=== PATIENT | male | born 1985 | race Caucasian/White ===

== ENCOUNTER 2016-07-04 14:39 | Emergency (ER) | payer SELFPAY ==
[2016-07-04] MEDS ORDERED: Ketorolac INJ* 60 MG/2 ML VIAL IM ONE (15:14)
--- NOTE | 2016-07-04 15:17 | ED ---
Back Pain - HPI Summary HPI Summary: 30 male presents with complaints of lower back pain that began 3 days ago that is accompanied by upper buttock numbness. He woke up with this pain. Patient denies bladder/bowel incontinence and saddle anesthesia. Denies numbness and tingling in lower extremities. Patient has not tried taking anything OTC for the pain. 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 He is also on his feet. He denies any PMHx. States he has chronic low back pain but has never had it this bad with the numbness of his upper buttocks/ lower back. Denies trauma, upper back, or neck pain. Denies difficulty breathing or chest pain. Pain does not radiate. Describes it as sharp that comes and goes. Worsens during walking, bearing weight and when bending over. - History of Current Complaint Chief Complaint: EDBackInjuryPain Stated Complaint: LOWER BACK PAIN Time Seen by Provider: 07/04/16 14:48 Hx Obtained From: Patient Onset/Duration: Sudden Onset Onset/Duration: Started Days Ago, Still Present Timing: Constant Back Pain Location: Is Discrete @ - L2-S1 Severity Initially: Mild Severity Currently: Moderate Pain Intensity: 6 Pain Scale Used: 0-10 Numeric Character: Sharp, Aching, Stiffness Aggravating Symptom(s): Movement, Bending, Walking Alleviating Symptom(s): Rest, Position Associated Signs And Symptoms: Positive: Weakness - of LE due to pain, Numbness - upper buttocks. Negative: Tingling, Bladder Incontinence, Bowel Incontinence , Pain with Weight Bearing - Allergies/Home Medications Allergies/Adverse Reactions: Allergies Allergy/AdvReac Type Severity Reaction Status Date / Time No Known Allergies Allergy Verified 07/04/16 14:42 PMH/Surg Hx/FS Hx/Imm Hx Endocrine/Hematology History: Denies: Hx Anemia Cardiovascular History: Denies: Hx Hypertension Respiratory History: Denies: Hx Asthma - Surgical History Surgery Procedure, Year, and Place: wisdom teeth, vasectomy - Immunization History Immunizations Up to Date: Yes Infectious Disease History: No Infectious Disease History: Denies: Traveled Outside the [place] in Last 30 Days - Family History Known Family History: Positive: Unknown - Social History Occupation: Employed Full-time Alcohol Use: Occasionally Substance Use Type: Reports: None Smoking Status (MU): Never Smoked Tobacco Review of Systems Constitutional: Negative Eyes: Negative ENT: Negative Cardiovascular: Negative Respiratory: Negative Gastrointestinal: Negative Genitourinary: Negative Positive: Arthralgia, Myalgia - lower back , Decreased ROM Skin: Negative Positive: Numbness - buttocks Psychological: Normal All Other Systems Reviewed And Are Negative: Yes Physical Exam Triage Information Reviewed: Yes Vital Signs On Initial Exam: Initial Vitals Temp Pulse Resp BP Pulse Ox 97.4 F 83 16 128/81 100 07/04/16 14:42 07/04/16 14:42 07/04/16 14:42 07/04/16 14:42 07/04/16 14:42 Vital Signs Reviewed: Yes Appearance: Positive: Well-Appearing - sitting in chair comforably, No Pain Distress, Well-Nourished Skin: Positive: Warm, Skin Color Reflects Adequate Perfusion, Dry Head/Face: Positive: Normal Head/Face Inspection Eyes: Positive: Normal, Conjunctiva Clear ENT: Positive: Normal ENT inspection, Hearing grossly normal Neck: Positive: Supple, Nontender Respiratory/Lung Sounds: Positive: Clear to Auscultation, Breath Sounds Present. Negative: Rales, Rhonchi, Wheezes Cardiovascular: Positive: Normal, RRR, Pulses are Symmetrical in both Upper and Lower Extremities - pedal pulses 2+ bilateral Abdomen Description: Positive: Nontender, No Organomegaly, Soft Bowel Sounds: Positive: Present Musculoskeletal: Positive: Normal, Strength/ROM Intact - however lower extremity strength 3/5 due to pain in lower back. sensation and skin intact. no obvious deformities., Pain @ - lower lumbar spine both bony tenderness and paravetebral tenderness on palpation area of L2-S1. no obvious deformity or ecchymosis. Negative: Limited @, Interruption @, Kira Sign Left, Kira Sign Right, Edema Left, Edema Right Neurological: Positive: Normal, Sensory/Motor Intact, Alert, Oriented to Person Place, Time, CN Intact II-III, Reflexes Intact, NV Bundle Intact Distally, Normal Gait, Speech Normal Psychiatric: Positive: Normal, Affect/Mood Appropriate Diagnostics - Vital Signs Vital Signs Temp Pulse Resp BP Pulse Ox 07/04/16 14:42 97.4 F 83 16 128/81 100 - Laboratory Lab Statement: Any lab studies that have been ordered have been reviewed, and results considered in the medical decision making process. - Radiology lumbar sacral spine Xray Interpretation: No Acute Changes - Normal radiographic series of the lumbar spine without evidence of acute fracture or significant subluxation. Radiology Interpretation Completed By: Radiologist Re-Evaluation - Re-Evaluation First Eval Re-Evaluation Time: 16:00 Change: Improved - some relief after toradol Back Pain Course/Dx - Course Course Of Treatment: x-ray of lumbarsacral spine obtained and negative. toradol administered and patient had some relief. referall to orthopedic for further imaging. follow up with PCP. pain management, steroid and flexeril given to take at home. Given some to take at home with him for tonight. RICE. Aware of worsening signs and symptoms of cauda eqiuna that he should seek medical attention immediately. Did not appear to need emergent MRI at this time. No signs of cauda equina or epidural abscess. No risk factors or PE findings of either. - Diagnoses Differential Diagnosis/HQI/PQRI: Positive: Cauda Equina Syndrome, Herniated Disc , Strain, Sprain Provider Diagnoses: Low back pain, Lumbosacral strain, Radiculopathy - Provider Notifications Discussed Care of Patient With: Dr Darden, Dr Olea Discharge - Discharge Plan Condition: Stable Disposition: HOME Prescriptions: Cyclobenzaprine TAB* [Flexeril 10 MG TAB*] 10 mg PO BEDTIME #15 tab Ibuprofen TAB* [Motrin TAB* 800 MG] 800 mg PO Q6H #30 tab predniSONE TAB* [Deltasone TAB*] 20 mg PO DAILY #5 tab Patient Education Materials: Acute Low Back Pain (ED), Lumbar Radiculopathy (ED ) Forms: *Work Release Referrals: Karina Fried MD [Primary Care Provider] - Additional Instructions: Take prescribed Ibuprofen to help with pain and inflammation. Steroid- Prednisone once daily and Flexeril (muscle relaxer) at bedtime do not drive while taking this medication. Make an appointment with your PCP or orthopedics for further imaging if symptoms persist. Rest and ice/heat your lower back. Try not to lift over 15 pounds when you return to work while your symptoms persist. If you develop symptoms of numbness and tingling in your inner thighs or lower extremities, increased weakness or lose control of bladder/bowel seek medical attention immediately.
--- NOTE | 2016-07-04 16:30 | RAD ---
INDICATION: Low back pain and numbness over the buttocks x3 days COMPARISON: None. TECHNIQUE: 5 views of the lumbar spine were obtained. FINDINGS: The vertebra are in normal alignment. No fracture is seen. Disc spaces appear maintained. IMPRESSION: Normal radiographic series of the lumbar spine without evidence of acute fracture or significant subluxation.
[2016-07-04] MEDS ORDERED: predniSONE TAB* 20 MG PO ONE (16:41)
[2016-07-04] MEDS ORDERED: Cyclobenzaprine TAB* 10 MG PO ONE (16:42)
== END 2016-07-04 16:57 | disposition home or self-care (01) ==
LOC: ED 14:39
DX: S39.012A Strain of muscle, fascia and tendon of lower back, initial encounter (principal); M54.5 Low back pain; M54.10 Radiculopathy, site unspecified; X58.XXXA Exposure to other specified factors, initial encounter; Y93.9 Activity, unspecified; Y92.89 Other specified places as the place of occurrence of the external cause
CPT/HCPCS: 72110; 96372; 99282; A9270-GY; J1885; J7512

== ENCOUNTER 2017-11-06 15:57 | Emergency (ER) | payer SELFPAY ==
--- NOTE | 2017-11-06 17:06 | RAD ---
INDICATION: Right shoulder pain COMPARISON: None TECHNIQUE: AP and Y views were obtained. FINDINGS: The bony structures, joint spaces, and soft tissues are normal for age. IMPRESSION: NEGATIVE EXAMINATION.
--- NOTE | 2017-11-06 17:09 | ED ---
Upper Extremity Pain - HPI Summary HPI Summary: This is meredith Isidoro Champion documenting for attending Dr. Fernando Modi MD. This patient is a 32 year old M presenting to [facility] with a chief complaint of worsening right shoulder pain since 2 months ago. The patient rates the pain 6/ 10 in severity. Pt first injured his shoulder two months ago by landing on his right side with his arm outstretched. Patient reports burning pain in the shoulder and decreased ROM. Patient denies numbness or tingling, recent trauma, or fever. Pt has not seen anyone for this before today. Pt is right handed. Pt took ibuprofen to treat his pain for the last several months. 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 - History of Current Complaint Chief Complaint: EDShoulderClavicleInj Stated Complaint: RT SHOULDER INJURY Time Seen by Provider: 11/06/17 16:38 Hx Obtained From: Patient Mechanism Of Injury: Fall From A Standing Position Onset/Duration: Started Weeks Ago - 8 Timing: Intermittent Severity Initially: Mild Severity Currently: Severe Pain Location: Shoulder - right Character: Burning Associated Signs & Symptoms: Negative: Fever - Allergies/Home Medications Allergies/Adverse Reactions: Allergies Allergy/AdvReac Type Severity Reaction Status Date / Time No Known Allergies Allergy Verified 07/04/16 14:42 PMH/Surg Hx/FS Hx/Imm Hx Endocrine/Hematology History: Denies: Hx Anemia Cardiovascular History: Denies: Hx Hypertension Respiratory History: Denies: Hx Asthma Neurological History: Denies: Other Neuro Impairments/Disorders - Surgical History Surgery Procedure, Year, and Place: wisdom teeth, vasectomy Infectious Disease History: No Infectious Disease History: Denies: Traveled Outside the [place] in Last 30 Days - Family History Known Family History: Positive: Unknown - Social History Alcohol Use: Rare Substance Use Type: Reports: None Smoking Status (MU): Heavy Every Day Tobacco Smoker Review of Systems Negative: Fever Positive: Decreased ROM, Other - burning pain in shoulder All Other Systems Reviewed And Are Negative: Yes Physical Exam - Summary Physical Exam Summary: Constitutional: Well-developed, Well-nourished, Alert. Skin: Warm, Dry HENT: Normocephalic; Atraumatic Eyes: Conjunctiva normal Neck: Musculoskeletal ROM normal neck. Cardio: Rhythm regular, rate normal, Heart sounds normal; Intact distal pulses; The pedal pulses are 2+ and symmetric. Radial pulses are 2+ and symmetric. Pulmonary/Chest wall: Effort normal. Abd: Soft. Musculoskeletal: Right rotator cuff injury. Neuro: Alert, Oriented x3 Psych: Mood and affect Normal Triage Information Reviewed: Yes Vital Signs On Initial Exam: Initial Vitals Temp Pulse Resp BP Pulse Ox 98.1 F 76 14 119/73 98 11/06/17 16:00 11/06/17 16:00 11/06/17 16:00 11/06/17 16:00 11/06/17 16:00 Vital Signs Reviewed: Yes Diagnostics - Vital Signs Vital Signs Temp Pulse Resp BP Pulse Ox 11/06/17 16:00 98.1 F 76 14 119/73 98 - Laboratory Lab Statement: Any lab studies that have been ordered have been reviewed, and results considered in the medical decision making process. - Radiology Shoulder X Ray Radiology Interpretation Completed By: Radiologist - NEGATIVE EXAMINATION. ER Physician reviewed this report. Course/Dx - Course Course Of Treatment: This is scribe Isidoro [place] documenting for attending Dr. Fernando Modi MD. This patient is a 32 year old M presenting to [facility] with a chief complaint of worsening right shoulder pain since 2 months ago. The patient rates the pain 6/10 in severity. Pt first injured his shoulder two months ago by landing on his right side with his arm outstretched. Patient reports burning pain in the shoulder and decreased ROM. Patient denies numbness or tingling, recent trauma, or fever. Pt has not seen anyone for this before today. Pt is right handed. Pt took ibuprofen to treat his pain for the last several months. 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 Shoulder X Ray. NEGATIVE EXAMINATION. Pt will be given a work note saying that he cannot use his right arm. Pt will be sent home. Pt should get an MRI off site and will be put into a sling for now. Pt is agreeable with this plan. - Diagnoses Provider Diagnoses: Right rotator cuff tear Discharge - Sign-Out/Discharge Documenting (check all that apply): Patient Departure - Discharge - Discharge Plan Condition: Stable Disposition: HOME Patient Education Materials: Rotator Cuff Injury (ED) Forms: *Work Release Referrals: Karina Fried MD [Primary Care Provider] - Prince Byers MD [Medical Doctor] - 2 Days () Care [facility] [Outside] Additional Instructions: RETURN TO THE EMERGENCY DEPARTMENT FOR CHANGING OR WORSENING SYMPTOMS
[2017-11-06 17:48] VITALS: BP 117/76
== END 2017-11-06 17:39 | disposition home or self-care (01) ==
LOC: ED 15:57
DX: S46.011A Strain of muscle(s) and tendon(s) of the rotator cuff of right shoulder, initial encounter (principal); X58.XXXA Exposure to other specified factors, initial encounter; Y93.9 Activity, unspecified; Y92.9 Unspecified place or not applicable; F17.200 Nicotine dependence, unspecified, uncomplicated
CPT/HCPCS: 99282

== ENCOUNTER 2018-04-17 16:03 | Emergency (ER) | payer OTHER ==
[2018-04-17] MEDS ORDERED: Ketorolac INJ* 60 MG/2 ML VIAL IM ONE (16:25)
--- NOTE | 2018-04-17 16:29 | ED ---
Back Pain - HPI Summary HPI Summary: Patient is a 32-year-old male who presents emergency department for left upper back pain that started acutely today at work. 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 Patient denies fall or other injuries. States he has occasional back pain but pain today is different. He describes it as a cramping sensation right under his left shoulder blade. He denies radicular pain into arms, numbness, tingling or weakness. He notes pain is worse with twisting and deep inspiration. Patient notes hard time taking a deep breath in secondary to pain. He otherwise denies past medical history. He denies swelling in legs, history of blood clots, recent long travels, recent surgeries. Symptoms are mild in severity. He notes mild nasal congestion but denies recent cough or fever. - History of Current Complaint Chief Complaint: EDBackInjuryPain Stated Complaint: BACK PAIN Time Seen by Provider: 04/17/18 16:18 Hx Obtained From: Patient Pain Intensity: 8 - Allergies/Home Medications Allergies/Adverse Reactions: Allergies Allergy/AdvReac Type Severity Reaction Status Date / Time No Known Allergies Allergy Verified 04/17/18 16:08 PMH/Surg Hx/FS Hx/Imm Hx Previously Healthy: Yes Endocrine/Hematology History: Denies: Hx Anemia Cardiovascular History: Denies: Hx Hypertension Respiratory History: Denies: Hx Asthma Neurological History: Denies: Other Neuro Impairments/Disorders - Surgical History Surgery Procedure, Year, and Place: wisdom teeth, vasectomy Infectious Disease History: No Infectious Disease History: Denies: Traveled Outside the [place] in Last 30 Days - Family History Known Family History: Positive: Unknown, Non-Contributory - Social History Occupation: Employed Full-time Lives: With Family Alcohol Use: Rare Substance Use Type: Reports: None Smoking Status (MU): Heavy Every Day Tobacco Smoker Review of Systems Positive: Other - Right upper back pain Negative: Weakness, Paresthesia, Numbness All Other Systems Reviewed And Are Negative: Yes Physical Exam Triage Information Reviewed: Yes Vital Signs On Initial Exam: Initial Vitals Temp Pulse Resp BP Pulse Ox 98.1 F 104 20 145/79 100 04/17/18 16:05 04/17/18 16:05 04/17/18 16:05 04/17/18 16:05 04/17/18 16:05 Vital Signs Reviewed: Yes Appearance: Positive: Well-Appearing - Pt. sitting up in bed holding his left arm. Appears uncomfortable but nontoxic. Skin: Positive: Warm, Dry Head/Face: Positive: Normal Head/Face Inspection Eyes: Positive: Normal, EOMI Neck: Positive: Supple Respiratory/Lung Sounds: Positive: Clear to Auscultation, Breath Sounds Present Cardiovascular: Positive: Normal, RRR Musculoskeletal: Positive: Normal, Strength/ROM Intact, Other - No midline T spine tenderness. Pain on palpation to left paraspinal muscles near scapula. Neurological: Positive: Normal, CN Intact II-III Psychiatric: Positive: Affect/Mood Appropriate Diagnostics - Vital Signs Vital Signs Temp Pulse Resp BP Pulse Ox 04/17/18 16:05 98.1 F 104 20 145/79 100 - Laboratory Lab Statement: Any lab studies that have been ordered have been reviewed, and results considered in the medical decision making process. Back Pain Course/Dx - Course Course Of Treatment: Pt. presenting with reproducible upper back pain. He is afebrile with stable VS. Pt. describes pain as a cramping sensation. He also notes difficulty breathing secondary to pain. Will obtain CXR to r/o pneumo. Pt. notes he is driving home. Will give toradol for now. CXR is negative for pneumothorax or acute findings per radiology. Suspect muscle spasm. Will give small rx for valium and naproxen. TRAINMASTER reviewed. Advised to apply warm compresses , gentle massage. Work excuse offered and pt. declines. Close f.u with PCP. To return to ER if sxs change or worsen. Pt. understands and agrees with plan. - Diagnoses Differential Diagnosis/HQI/PQRI: Positive: Fracture, Herniated Disc, Strain, Sprain Provider Diagnoses: Muscle spasm of back Discharge - Sign-Out/Discharge Documenting (check all that apply): Patient Departure - Discharge Plan Condition: Good Disposition: HOME Prescriptions: Diazepam TAB(NF) [Valium TAB(NF)] 2 mg PO TID PRN #9 tab MDD 3 tablets PRN Reason: Spasms - Back Naproxen [Naproxen 500 mg tab] 500 mg PO BID #20 tablet Patient Education Materials: Muscle Spasm (ED) Referrals: Karina Fried MD [Primary Care Provider] - Additional Instructions: Schedule a close follow up appointment with PCP Take medication as directed Apply warm compresses to back Gentle massage Return to ER if symptoms change or worsen - Billing Disposition and Condition Condition: GOOD Disposition: Home
[2018-04-17 17:36] VITALS: BP 121/72
== END 2018-04-17 17:36 | disposition home or self-care (01) ==
LOC: ED 16:03
DX: M62.830 Muscle spasm of back (principal); Z72.0 Tobacco use
CPT/HCPCS: 71045; 96372; 99281; J1885

== ENCOUNTER 2018-12-27 21:12 | Emergency (ER) | payer SELFPAY ==
[2018-12-27 21:22] VITALS: BP 122/83
== END 2018-12-27 22:21 | disposition left against medical advice (07) ==
LOC: ED 21:12
DX: S69.90XA Unspecified injury of unspecified wrist, hand and finger(s), initial encounter (principal); Z53.21 Procedure and treatment not carried out due to patient leaving prior to being seen by health care provider; X58.XXXA Exposure to other specified factors, initial encounter; Y92.9 Unspecified place or not applicable
CPT/HCPCS: 99282